=== PATIENT | male | born 1965 | race Caucasian/White ===

== ENCOUNTER 2018-04-18 07:28 | Day surgery (SDC) | payer OTHER, SELFPAY ==
[2018-04-18 08:37] VITALS: BP 134/88; PULSE 74; RESP 16; TEMP 36.6; O2SAT 97; BMI 27.8
[2018-04-18] MEDS: SODIUM CHLORIDE 0.9% 1,000 ML 200 ML IV (08:42)
--- NOTE | 2018-04-18 09:24 | PM.HP.1 ---
History of Present Illness Date Patient Seen: 04/18/18 Time Patient Seen: 09:24 Chief complaint: [id number] Narrative: 52-year-old male who presents for colorectal screening. He has had no prior such examination. On further history today denies any gastrointestinal symptoms. No nausea, vomiting, loss of appetite, unexplained weight loss, abdominal pain, change in bowel habits, diarrhea, constipation, melena, hematochezia, or bright red blood per rectum. Patient History Medical History Hyperlipidemia (Acute) Hypertension (Acute) No significant past surgical history (Acute) Obstructive sleep apnea (Acute) Family & Social History Family History: Reviewed 04/18/18 by John Chavez MD Social History: household members spouse Meds Home Medications Medication Instructions Recorded Confirmed Type valsartan 160 mg PO DAILY 04/18/18 04/18/18 History Allergies Allergy/AdvReac Type Severity Reaction Status Date / Time No Known Drug Allergies Allergy Verified 04/18/18 08:29 Review of Systems Review of Systems All systems reviewed & are unremarkable except as noted in HPI and below Exam Vital Signs (past 8 hours): - 04/18/18 08:37 Temperature 97.8 F Pulse Rate 74 Respiratory Rate 16 Blood Pressure 134/88 Pulse Oximetry 97 Oxygen Delivery Method Room Air Narrative Exam Narrative: Well-nourished well-developed male in no acute distress. Alert oriented x3. Sclera nonicteric Regular rate rhythm Abdomen soft, nondistended, nontender Extremities show no clubbing, cyanosis, or edema Objective Labs Labs: No recent laboratory or radiographic studies for review Assessment & Plan Plan: Assessment/Plan Narrative: 52-year-old male requiring colorectal screening by age criteria. Colonoscopy is recommended. Technical details of the procedure were discussed. Risks, benefits, alternatives were explained. Risks including but not limited to sedation, aspiration, bleeding, pain, missed lesion, incomplete examination, need for further radiographic studies, colonic perforation, need for major abdominal surgery, and all attendant risks of major surgery were discussed at length. All questions were answered to his satisfaction, and he voiced understanding. Consent was placed on the chart. We will proceed as above.
--- NOTE | 2018-04-18 09:27 | PM.PREOP ---
Pre-operative Note Interval Note Pre-op Check: Yes History & Physical Reviewed by Physician, Yes Exam Performed and Yes History & Physical exam performed today by Physician Changes: No H&P completed within 30 days and has changed as indicated here:: Patient seen and examined today. History and physical examination documented and placed on the chart. Proceed with colonoscopy today as planned. ASA Class (for procedural sedation): II
--- NOTE | 2018-04-18 09:56 | SUR.OPER ---
0942- PATIENTS O2 SAT DECREASED. O2 FLOW INCREASED. JAW LIFT PERFORMED. AMBU BAG UTILIZED UNTIL 952 WHEN PATIENT WAS ABLE TO RESPOND VERBALLY.TRANSPORTED TO PACU ACCOMPANIED BY RN TIMES 2
--- NOTE | 2018-04-18 09:59 | PM.OP.ENDO ---
Operative Date/Time/Diagnoses Date of procedure: 04/18/18 Time of procedure: 09:59 Post-op diagnosis: same Procedure & Clinicians Study performed: 1. Sedation per surgeon 2. Incomplete colonoscopy Same procedure as scheduled: No (Patient became apneic with conscious sedation. Procedure aborted.) Indications: 52-year-old male who presents for colorectal screening by age criteria. Colonoscopy is recommended. Surgeon: John Chavez Procedure Notes SCOAP/Timeout: Yes Procedure in detail: After obtaining informed consent the patient was brought to the endoscopy suite and attached all appropriate cardiopulmonary monitors. Nasal cannula oxygen was applied. He was placed in left lateral decubitus position. SCOAP time out was performed per standard protocol. Intravenous sedation was achieved per the surgeon using fentanyl and Versed. Digital rectal examination revealed no masses or abnormalities. Prostate was smooth without nodules. Colonoscope was inserted into the rectum and the bowel was insufflated with carbon dioxide. Under direct visualization of the colonic lumen the scope was advanced to the hepatic flexure. Bowel preparation was fair. At this point the patient began to have oxygen desaturations and apnea with his baseline history of obstructive sleep apnea. Oral airway was inserted and jaw thrust maneuver was performed. However, the patient continued to have lower ring saturations. Patient was therefore placed in supine position and scope was withdrawn. Procedure was aborted at this stage in the patient received bag-mask ventilation with hoahaoism of normal saturations, heart rate, and blood pressure. Patient regained normal consciousness and was conversing without difficulty. He moved all extremities normally. He was able to maintain his own airway and the oral airway was removed. Patient was taken recovery room. We will attempt to proceed with colonoscopy later today under anesthesia. Scope withdrawal time: Not applicable Sedation minutes: 29 Findings: other findings (Incomplete colonoscopy as above.) Specimen(s): none sent Complications: other (Patient became apneic requiring bag-mask ventilation. Procedure was therefore aborted.) Recommendations: Other recommendation (Will reschedule case for later today under anesthesia) Plan for aftercare: 1. Returned to PACU 2. Proceed with colonoscopy under anesthesia later today Follow up: as needed Disposition: PACU
[2018-04-18] MEDS: fentaNYL 250 MCG/5 ML INJ IV (10:01)
[2018-04-18] MEDS: MIDAZOLAM 5 MG/5 ML VIAL IV (10:01)
[2018-04-18 10:04] VITALS: BP 115/71; PULSE 104; RESP 12; TEMP 36.4; O2SAT 92
[2018-04-18 10:09] VITALS: BP 117/80; PULSE 96; RESP 8; O2SAT 92
[2018-04-18 10:14] VITALS: BP 116/80; PULSE 88; RESP 10; TEMP 36.6; O2SAT 96
[2018-04-18 10:21] VITALS: BP 123/78; PULSE 85; RESP 15; TEMP 36.6; O2SAT 97
--- NOTE | 2018-04-18 10:42 | PM.PREOP ---
Pre-operative Note Interval Note Pre-op Check: Yes History & Physical Reviewed by Physician, Yes Exam Performed and Yes History & Physical exam performed today by Physician Changes: No H&P completed within 30 days and has changed as indicated here:: History physical examination dated today and placed on the chart. There have been no changes. We will proceed with colonoscopy under anesthesia as per the previous procedure note dated today. Consent on the chart.
--- NOTE | 2018-04-18 11:18 | P.OP.ENDO_ITS ---
Operative Date/Time/Diagnoses Date of procedure: 04/18/18 Time of procedure: 11:15 Pre-op diagnosis: Colorectal screening Post-op diagnosis: other (Normal colon and rectum) Procedure & Clinicians Study performed: 1. Colonoscopy Same procedure as scheduled: Yes Indications: 52-year-old male who presents for colorectal screening by age criteria. Earlier attempts at colonoscopy under conscious sedation per surgeon were unsuccessful due to patient's obstructive sleep apnea and transient hypoxia. He was therefore recommended undergo repeated attempted colonoscopy under general anesthesia. General anesthesia was clearly indicated given the patient's obstructive sleep apnea and tenuous airway as previously documented. Surgeon: John Chavez Procedure Notes SCOAP/Timeout: Yes Procedure in detail: After obtaining informed consent, the patient was brought to the GI suite and placed in the left lateral decubitus position on the examination table. After placement of appropriate monitors, the patient was placed under general anesthesia. Please see anesthesia records for details. A time out was held per SCOAP protocol prior to anesthesia. A digital rectal examination was performed and did not reveal any masses or obstructing lesions. The colonoscope was gently passed into the patient's anus and the entire colon navigated to the level of the cecum with minimal difficulty. Once in the cecum, the scope was withdrawn being sure to go before and beyond all mucosal folds and prominences and get an excellent examination. The findings are noted above. At the level of the rectal vault, the scope was retroflexed and the internal anal canal was examined. The scope was straightened and air aspirated from the colon. The instrument was removed from the patient's body and the procedure was concluded. The patient was allowed to awaken from sedation without difficulty and taken to the post-anesthesia care unit in good condition. Scope withdrawal time: 8:43 min Sedation minutes: 0 Findings: internal hemorrhoids (Grade 2 only, not inflamed) and other findings ( Normal colon and rectum) Specimen(s): none sent Complications: none Recommendations: Colonscopy in 10 years and High fiber diet Plan for aftercare: 1. Discharge home Follow up: as needed Disposition: PACU
== END 2018-04-18 10:30 ==
LOC: ENDO 07:31
PROVIDERS: PCP Physician Assistant; Visit Provider Surgery
PROC: 0DJD8ZZ Inspection of Lower Intestinal Tract, Via Natural or Artificial Opening Endoscopic (ICD-10-PCS; CPT 45378; principal; 2018-04-18 09:30)
DX: Z12.11 Encounter for screening for malignant neoplasm of colon (principal); G97.81 Other intraoperative complications of nervous system; G47.33 Obstructive sleep apnea (adult) (pediatric); K64.1 Second degree hemorrhoids; Z53.09 Procedure and treatment not carried out because of other contraindication; I10 Essential (primary) hypertension; E78.5 Hyperlipidemia, unspecified
CPT/HCPCS: 45378 ×2; J2250; J2405; J2704; J3010